=== PATIENT | female | born 1950 | race Caucasian/White ===

== ENCOUNTER 2022-08-13 04:16 | Day surgery (SDC) | payer OTHER ==
[2022-08-12 10:13] VITALS: BMI 22.4
[~2022-08-13 04:16] MED LIST: LIDOCAINE HCL 1% PRESERVATIVE FREE - 30ML VIAL IO ONE; TETRACAINE 0.5% OPHTH SOLN 2 ML BOTTLE OS ONE; TOBRAMYCIN/DEXAMETHASONE OPHTH. OINTMENT 1 TUBE OS ONE
[2022-08-13] MEDS ORDERED: TETRACAINE 0.5% OPHTH SOLN 2 ML BOTTLE ONE (07:18)
[2022-08-13] MEDS ORDERED: TOBRAMYCIN/DEXAMETHASONE OPHTH. OINTMENT 1 TUBE ONE (07:18)
[2022-08-13] MEDS ORDERED: POVIDONE-IODINE 5% OPHTHALMIC PREP 30 ML SOLUTION ONE (07:18)
[2022-08-13] MEDS ORDERED: LIDOCAINE HCL/PF 1% SDV 5ML VIAL ONE (07:18)
[2022-08-13] MEDS ORDERED: ACETAMINOPHEN 325 MG TABLET (FP) PO PRN (07:27)
[2022-08-13] MEDS ORDERED: PHENYLEPHRINE 2.5% OPHTH SOLN 15 ML BOTTLE OP SCH (07:30)
[2022-08-13] MEDS ORDERED: KETOROLAC TROMETHAMINE 0.5% EYE DROP 1 DROP DROPS OP SCH (07:30)
[2022-08-13] MEDS ORDERED: TROPICAMIDE 1% OPHTH SOLN 15 ML BOTTLE OP SCH (07:30)
[2022-08-13] MEDS ORDERED: CIPROFLOXACIN HCL 0.3% OPHTH 2.5ML BOTTLE OP SCH (07:30)
[2022-08-13] MEDS ORDERED: TROPICAMIDE 0.5% OPHTHALMIC SOLN 15 ML BOTTLE ONE (08:49)
[2022-08-13] MEDS ORDERED: PHENYLEPHRINE 2.5% OPTHALMIC DROP BOTTLE ONE (08:50)
[2022-08-13] MEDS ORDERED: TROPICAMIDE 1% OPHTH SOLN 15 ML BOTTLE OS ONE ×3 (09:00→09:20)
[2022-08-13] MEDS ORDERED: KETOROLAC TROMETHAMINE 0.5% EYE DROP 1 DROP DROPS OS ONE ×3 (09:00→09:20)
[2022-08-13] MEDS ORDERED: PHENYLEPHRINE 2.5% OPHTH SOLN 15 ML BOTTLE OS ONE ×3 (09:00→09:20)
[2022-08-13] MEDS ORDERED: CIPROFLOXACIN HCL 0.3% OPHTH 2.5ML BOTTLE OS ONE ×3 (09:00→09:20)
[2022-08-13] MEDS ORDERED: MIDAZOLAM HCL 2 MG/2 ML SINGLE DOSE VIAL ONE (10:51)
[2022-08-13] MEDS ORDERED: TETRACAINE 0.5% OPHTH SOLN 2 ML BOTTLE OS ONE (10:54)
[2022-08-13] MEDS ORDERED: POVIDONE-IODINE 5% OPHTHALMIC PREP 30 ML SOLUTION OS ONE (10:56)
[2022-08-13] MEDS ORDERED: BSS (NA/CA/MG/K) BALANCED SALT SOLUTION OPHTH SOLN 15 ML BOTTLE OS ONE (11:00)
[2022-08-13] MEDS ORDERED: LIDOCAINE HCL 1% PRESERVATIVE FREE - 30ML VIAL IO ONE (11:01)
[2022-08-13] MEDS ORDERED: CHONDROITIN SU A/HYALUR SOD 1 KIT IO ONE (11:03)
[2022-08-13] MEDS ORDERED: EPINEPHrine/PF 1 MG/1 ML (1:1,000) AMPULE SQ ONE (11:08)
[2022-08-13] MEDS ORDERED: TOBRAMYCIN/DEXAMETHASONE OPHTH. OINTMENT 1 TUBE OS ONE (11:17)
[2022-08-13 11:46] VITALS: RESP 18
[2022-08-13 12:14] VITALS: BP 112/62; PULSE 74; TEMP 97.3
== END 2022-08-13 14:47 | disposition home or self-care (01) ==
LOC: JASU-SURG 04:16
PROVIDERS: ATTEND Ophthalmology
PROC: 08RK3JZ Replacement of Left Lens with Synthetic Substitute, Percutaneous Approach (ICD-10-PCS; principal; 2022-08-13 10:30)
DX: H25.12 Age-related nuclear cataract, left eye (principal)

== ENCOUNTER 2022-08-20 04:21 | Day surgery (SDC) | payer OTHER ==
[2022-08-18 15:54] VITALS: BMI 22.4
[~2022-08-20 04:21] MED LIST changes: +BSS (NA/CA/MG/K) BALANCED SALT SOLUTION OPHTH SOLN 15 ML BOTTLE IO ONE; +CHONDROITIN SU A/HYALUR SOD 1 KIT IO ONE; +EPINEPHrine/PF 1 MG/1 ML (1:1,000) AMPULE SQ ONE; +POVIDONE-IODINE 5% OPHTHALMIC PREP 30 ML SOLUTION OD ONE; +TETRACAINE 0.5% OPHTH SOLN 2 ML BOTTLE OD ONE; -TETRACAINE 0.5% OPHTH SOLN 2 ML BOTTLE OS ONE; +TOBRAMYCIN/DEXAMETHASONE OPHTH. OINTMENT 1 TUBE OD ONE; -TOBRAMYCIN/DEXAMETHASONE OPHTH. OINTMENT 1 TUBE OS ONE
[2022-08-20 06:20] VITALS: RESP 20
[2022-08-20] MEDS: CIPROFLOXACIN HCL 0.3% OPHTH 2.5ML BOTTLE ONE ×3 (06:47→07:12)
[2022-08-20] MEDS: KETOROLAC TROMETHAMINE 0.5% EYE DROP 1 DROP DROPS ONE ×3 (06:48→07:12)
[2022-08-20] MEDS: PHENYLEPHRINE 2.5% OPTHALMIC DROP BOTTLE ONE ×3 (06:48→07:12)
[2022-08-20] MEDS: TROPICAMIDE 1% OPHTH SOLN 15 ML BOTTLE ONE ×3 (06:48→07:12)
[2022-08-20] MEDS ORDERED: LIDOCAINE HCL/PF 1% SDV 5ML VIAL ONE (07:00)
[2022-08-20] MEDS ORDERED: TOBRAMYCIN/DEXAMETHASONE OPHTH. OINTMENT 1 TUBE ONE (07:00)
[2022-08-20] MEDS ORDERED: TETRACAINE 0.5% OPHTH SOLN 2 ML BOTTLE ONE (07:00)
[2022-08-20] MEDS ORDERED: EPINEPHrine/PF 1 MG/1 ML (1:1,000) AMPULE ONE (07:00)
[2022-08-20] MEDS ORDERED: POVIDONE-IODINE 5% OPHTHALMIC PREP 30 ML SOLUTION ONE (07:01)
[2022-08-20] MEDS ORDERED: CHONDROITIN SU A/HYALUR SOD 1 KIT ONE (07:10)
[2022-08-20] MEDS ORDERED: ACETAMINOPHEN 325 MG TABLET (FP) PO PRN (07:19)
[2022-08-20] MEDS ORDERED: KETOROLAC TROMETHAMINE 0.5% EYE DROP 1 DROP DROPS OP SCH (07:30)
[2022-08-20] MEDS ORDERED: TROPICAMIDE 1% OPHTH SOLN 15 ML BOTTLE OP SCH (07:30)
[2022-08-20] MEDS ORDERED: PHENYLEPHRINE 2.5% OPHTH SOLN 15 ML BOTTLE OP SCH (07:30)
[2022-08-20] MEDS ORDERED: CIPROFLOXACIN HCL 0.3% OPHTH 2.5ML BOTTLE OP SCH (07:30)
[2022-08-20] MEDS ORDERED: PROPOFOL 20 ML ONE (07:32)
[2022-08-20] MEDS ORDERED: MIDAZOLAM HCL 2 MG/2 ML SINGLE DOSE VIAL ONE (07:32)
[2022-08-20] MEDS ORDERED: TETRACAINE 0.5% OPHTH SOLN 2 ML BOTTLE TP ONE (07:38)
[2022-08-20] MEDS ORDERED: TETRACAINE 0.5% OPHTH SOLN 2 ML BOTTLE OD ONE (07:38)
[2022-08-20] MEDS ORDERED: POVIDONE-IODINE 5% OPHTHALMIC PREP 30 ML SOLUTION OD ONE (07:42)
[2022-08-20] MEDS ORDERED: BSS (NA/CA/MG/K) BALANCED SALT SOLUTION OPHTH SOLN 15 ML BOTTLE OD ONE (07:49)
[2022-08-20] MEDS ORDERED: CHONDROITIN SU A/HYALUR SOD 1 KIT IO ONE (07:50)
[2022-08-20] MEDS ORDERED: LIDOCAINE HCL 1% PRESERVATIVE FREE - 30ML VIAL IO ONE (07:50)
[2022-08-20] MEDS ORDERED: EPINEPHrine/PF 1 MG/1 ML (1:1,000) AMPULE SQ ONE (07:56)
[2022-08-20] MEDS ORDERED: TOBRAMYCIN/DEXAMETHASONE OPHTH. OINTMENT 1 TUBE OD ONE (08:13)
[2022-08-20 08:39] VITALS: PULSE 70
[2022-08-20 09:47] VITALS: BP 121/54; TEMP 97.7
== END 2022-08-20 09:40 | disposition home or self-care (01) ==
LOC: JASU-SURG 04:21
PROVIDERS: ATTEND Ophthalmology
PROC: 08RJ3JZ Replacement of Right Lens with Synthetic Substitute, Percutaneous Approach (ICD-10-PCS; principal; 2022-08-20 07:30)
DX: H25.11 Age-related nuclear cataract, right eye (principal)